=== PATIENT | female | born 1930 | race Caucasian/White ===

== ENCOUNTER 2018-06-29 17:41 | Observation (INO) | payer OTHER ==
--- NOTE | 2018-06-29 17:54 | PDOC ---
Rapid Medical Evaluation Chief Complaint: Shortness of Breath Time Seen by Provider: 06/29/18 17:49 Medical Evaluation: 06/29/18 17:50 CC: Pt complains of SOB HPI: Pt is an 88 YO female who complains of SOB x 2-3 hours. Pt also complains of hx of anxiety. Pt is a poor historian and I received limited information from EMS. Pt denies pedal edema, denies CP. I have performed a brief in- person evaluation of this patient. Pertinent Physical Findings: Skin: Clear Lungs: Clear Heart: RRR Neuro: Alert Extremities: No pedal edema Psych: Appropriate affect I have ordered: CP/Respiratory Protocol The patient will proceed to: Main ED for further evaluation. Discharge Disposition - Diagnosis Shortness of breath - Referrals - Patient Instructions - Post Discharge Activity
[2018-06-29 18:01] VITALS: BMI 23.8
[2018-06-29 19:12] LABS: BASO % 1.3 % (0-2.0); EOS % 1.1 % (0-4.5); HEMOGLOBIN 13.6 GM/dL (10.7-15.3); MCH 31.2 pg (25.7-33.7); MCHC 33.3 g/dl (32.0-36.0); MEAN CELL VOLUME 93.8 fl (80-96); MEAN PLT VOLUME 8.2 fl (7.5-11.1); MONO % 6.6 % (3.8-10.2); PLATELET COUNT 246 K/MM3 (134-434); RBC 4.37 M/mm3 (3.60-5.2); RDW 13.3 % (11.6-15.6); WHITE BLOOD COUNT 5.9 K/mm3 (4.0-10.0)
[2018-06-29 19:41] LABS: ALBUMIN 4.1 g/dl (3.4-5.0); ALK PHOS 82 U/L (45-117); ANION GAP 5 MMOL/L (8-16); BILIRUBIN,TOTAL 0.8 mg/dL (0.2-1); BLOOD UREA NITROGEN 21 mg/dL (7-18); CALCIUM 9.7 mg/dL (8.5-10.1); CHLORIDE 104 mmol/L (98-107); CO2 26 mmol/L (21-32); GLUCOSE,RANDOM 97 mg/dL (74-106); POTASSIUM 4.3 mmol/L (3.5-5.1); SGOT/AST 18 U/L (15-37); SGPT/ALT 10 U/L (13-61); SODIUM 135 mmol/L (136-145); TOT PROT 7.6 g/dl (6.4-8.2)
--- NOTE | 2018-06-29 19:42 | PDOC ---
History of Present Illness - General Chief Complaint: Shortness of Breath Stated Complaint: PSYCHIATRIC Time Seen by Provider: 06/29/18 17:49 - History of Present Illness Initial Comments: 06/29/18 19:40 88 yo F with h/o Parkinson's disease who p/w SOB. Patient reports acute onset of SOB, this evening at rest. Also endorses palpitations, unremitting, diffuse chest tightness, and dyspepsia " sensation that she needs to burp," this evening. Does not recall time of symptom onset. Does not identify alleviators, or triggers. Patient is poor historian. Patient denies N/V, F,C, cough, wheezing, leg swelling/pain, urinary complaints , abdominal pain, diarrhea, constipation, lightheadedness, weakness, sensory changes. PMHx: as noted above. Denies h/o ACS/SD, CABG, stent placement. Denies h/o PE/ DVT. Denies h/o chronic NSAID use. ROS: as noted SHx: Denies Etoh, tobacco, IVDA Allergies: NKDA Meds: Sinemet, Metoprolol, Valium Past History - Past Medical History Allergies/Adverse Reactions: Allergies Allergy/AdvReac Type Severity Reaction Status Date / Time No Known Allergies Allergy Verified 06/29/18 17:51 COPD: No CHF: No Dementia: No - Immunization History Immunization Up to Date: No - Suicide/Smoking/Psychosocial Hx Smoking History: Never smoked Review of Systems - Review of Systems Comments:: 06/29/18 19:40 GENERAL/CONSTITUTIONAL: No fever or chills. No weakness. HEAD, EYES, EARS, NOSE AND THROAT: No change in vision. No ear pain or discharge. No sore throat. CARDIOVASCULAR: + chest pain and shortness of breath RESPIRATORY: No cough, wheezing, or hemoptysis. GASTROINTESTINAL: No nausea, vomiting, diarrhea or constipation. GENITOURINARY: No dysuria, frequency, or change in urination. MUSCULOSKELETAL: No joint or muscle swelling or pain. No neck or back pain. SKIN: No rash NEUROLOGIC: No headache, vertigo, loss of consciousness, or change in strength/ sensation. ENDOCRINE: No increased thirst. No abnormal weight change HEMATOLOGIC/LYMPHATIC: No anemia, easy bleeding, or history of blood clots. ALLERGIC/IMMUNOLOGIC: No hives or skin allergy. *Physical Exam - Vital Signs Last Vital Signs Temp Pulse Resp BP Pulse Ox 97.8 F 99 H 17 168/80 9 L 06/29/18 17:51 06/29/18 19:05 06/29/18 17:51 06/29/18 17:51 06/29/18 17:51 - Physical Exam Comments: 06/29/18 19:41 GENERAL: Anxious appearing, tremulous, awake, alert, and fully oriented. HEAD: No signs of trauma, normocephalic, atraumatic EYES: PERRLA, EOMI, sclera anicteric, conjunctiva clear ENT: Hearing grossly normal, nares patent, oropharynx clear without exudates. Moist mucosa NECK: Normal ROM, supple, no lymphadenopathy, JVD, or masses LUNGS: No distress, speaks full sentences, clear to auscultation bilaterally HEART: Regular rate and rhythm, normal S1 and S2, no murmurs, rubs or gallops, peripheral pulses normal and equal bilaterally. EXTREMITIES : Normal inspection, Normal range of motion, no edema. No clubbing or cyanosis. SKIN: Warm, Dry, normal turgor, no rashes or lesions noted ED Treatment Course - LABORATORY CBC & Chemistry Diagram: 06/29/18 19:00 06/29/18 19:00 - ADDITIONAL ORDERS Additional order review: 06/29/18 19:00 RBC 4.37 MCV 93.8 MCHC 33.3 RDW 13.3 MPV 8.2 Neutrophils % 61.0 Lymphocytes % 30.0 Monocytes % 6.6 Eosinophils % 1.1 Basophils % 1.3 Medical Decision Making - Medical Decision Making 06/29/18 21:20 88 yo F with h/o HTN, anxiety, Alzheimers dementia, Parkinson's disease who p/w SOB, chest tightness, and palpitations x 1 day. VSS, AF, A&OX3. Physical exam unremarkable. ACS/SD r/o. R/o PNA. Will assess for hypovolemia, hypoglycemia, cardiac dysarrtyhmias, metabolic and toxic derangements, acid-base disturbances , infection. ED Course: CBC, CMP, Trop, UA EKG, CXR 06/29/18 21:23 EKG: NSR with absent JEWEL, STD. Normal interval duration and axis. 06/29/18 21:26 CBC, CMP: Unremarkable Trop: Neg Admit to tele/obs 06/29/18 22:14 Per [facility] (pt. residence), are unaware of patient medication and pmh. Admitted to tele/obs. Sign out Dr. Dillon. 06/29/18 22:20 *DC/Admit/Observation/Transfer Diagnosis at time of Disposition: Shortness of breath Chest pain Qualifiers: Chest pain type: unspecified Qualified Code(s): R07.9 - Chest pain, unspecified - Discharge Dispostion Disposition: HOME Condition at time of disposition: Stable Decision to Admit order: Yes - Referrals Referrals: ON STAFF,NOT [Primary Care Provider] - - Patient Instructions Additional Instructions: Please return to the emergency department with any new or worsening symptoms or concerns. Please follow up with your primary care physician within 72 hours. - Post Discharge Activity - Attestations Physician Attestion: 06/29/18 19:41 I attest to the information provided in this note.
--- NOTE | 2018-06-29 20:26 | PDOC ---
Attending Attestation - [facility] HPI: 06/29/18 22:33 The patient is a 88 year old female with a significant past medical history of Parkinson's disease, anxiety, depression, chronic abdominal pain and HTN who presents to the ED with complaints of shortness of breath since earlier today. Patient reports a acute onset of shortness of breath this evening while at rest. She also reports palpitations, diffuse chest tightness, and dyspepsia associated with present symptoms. Patient saw her psychiatrist recently and put her on a new anxiety medication. Patient cannot recall the name of the medication. Patients a year ago and her son 2 years ago, since then patient has been depressed and anxious. As per daughter in law, patient has a history of noncompliance with medication. Denies fever or chills. Denies nausea or vomiting. Denies any other symptoms. Documentation prepared by Padmini Valero, acting as medical professionals for Aparna Awad DO. - Physicial Exam PE: 06/29/18 22:33 Constitutional: + Anxious appearing, tremulous, shaking, panicked, tachypneic. Awake, alert, oriented. Head: Normocephalic. Atraumatic Eyes: PERRL. EOMI. Conjunctivae are not pale. ENT: Mucous membranes are moist and intact. Posterior pharynx without exudates or erythema. Uvula midline. Neck: Supple. Full ROM. No lymphadenopathy. Cardiovascular: Regular rate. Regular rhythm. S1, S2 regular. Distal pulses are 2+ and symmetric. Pulmonary/Chest: No evidence of respiratory distress. Clear to auscultation bilaterally No wheezing, rales or rhonchi. Abdominal: + Mild periumbilical pain. Soft and non-distended. No rebound, guarding or rigidity. No organomegaly. No palpable masses. Good bowel sounds. Back: No CVA tenderness. Musculoskeletal: No edema. No cyanosis. No clubbing. Full range of motion in all extremities. Nocalf tenderness. Radial/pedal pulses are intact and 2+ bilaterally Skin: Skin is warm and dry. No petechiae. No purpura. Neurological: Alert and oriented to person, place, and time. Cranial nerves II -XII are grossly intact. Normal speech. Strength is grossly symmetric. No sensory deficits. Psychiatric: Good eye contact. Normal interaction, affect and behavior. <Padmini Valero - Last Filed: 06/29/18 22:33> - Resident Resident Name: Carl Montoya - ED Attending Attestation I have performed the following: I have examined & evaluated the patient, The case was reviewed & discussed with the resident, I agree w/resident's findings & plan, Exceptions are as noted - Medical Decision Making 06/29/18 20:25 I, Dr. Aparna Awad, DO, attest that this document has been prepared under my direction and personally reviewed by me in its entirety. I further attest, that it accurately reflects all work, treatment, procedures and medical decision -making performed by me. 06/29/18 22:41 a/p: 88yo female with with cp/sob and abd pain -hx of htn -hx of parksinsons -pt with tachypnea -pt states she cannot breath -will send labs, ekg, cxr -lungs cta -pt appears anxious 06/29/18 22:46 case discussed with the patients [id number] who states hx of htn, parkinsons, anxiety/depression: saw psych yesterday who started her on a "med" but she was unsure what medication Alexandra states hx of similar episodes: has been on xanax and valium in the past hx of noncompliance with all meds pt admits to not taking her sinemet today pt still c/o cp will place in obs over night for acs eval and further eval of sob 06/29/18 22:48 resident discussed the case with SANDER who accepts pt to service <Aparna Awad - Last Filed: 06/29/18 22:48> Heart Score/ECG Review - ECG Intrepretation Comment:: 06/29/18 21:57 sinus at 60, nl axis, nl interval, no acute st/t wave findings <Aparna Awad - Last Filed: 06/29/18 22:48>
[2018-06-29] MEDS ORDERED: LORazepam 0.5 MG TABLET PO ONE (22:14)
[2018-06-29] MEDS ORDERED: ASPIRIN 81 MG CHEWABLE TABLETS PO ONE (22:15)
[2018-06-29] MEDS ORDERED: LORazepam 0.5 MG TABLET ONE (22:30)
[2018-06-29] MEDS ORDERED: ASPIRIN COATED 81 MG TABLET.EC ONE (22:31)
--- NOTE | 2018-06-29 22:34 | PN ---
Teaching Attending Note Name of Resident: Angi Louie ATTENDING PHYSICIAN STATEMENT I saw and evaluated the patient. I reviewed the resident's note and discussed the case with the resident. I agree with the resident's findings and plan as documented. SUBJECTIVE: Patient is an 88 year old woman with history of Parkinson's disease, HTN, anxiety and Alzheimer's dementia sent from [address] [place] [address] for SOB. Patient reports acute onset of SOB this evening at rest associated with palpitations, unremitting, diffuse chest tightness, and dyspepsia - " sensation that she needs to burp,". Does not recall time of symptom onset. Does not identify alleviators or triggers. Patient denies vomiting, cough, chills, urinary complaints, abdominal pain, diarrhea or lightheadedness. OBJECTIVE: Alert and anxious. In no acute distress off O2 Vital Signs Period Temp Pulse Resp BP Sys/Clemons Pulse Ox Last 24 Hr 97.8 F 69-99 17-18 127-168/80-91 9-100 HEENT: No Jaundice, eye redness or discharge, PERRLA, EOMI. Normocephalic, atraumatic. External ears are normal and hearing is grossly intact. No nasal discharge. Neck: Supple, nontender. No palpable adenopathy or thyromegaly. No JVD Chest: Good effort. Clear to auscultation and percussion. Heart: Regular. No S3, rub or murmur Abdomen: Not distended, soft, nontender and no HSM. No rebound or guarding. Normoactive bowel sounds. Ext: Peripheral pulses intact. No leg edema. Skin: Warm and dry. No petechiae, rash or ecchymosis. Neuro: Alert. Anxious and tremulous. Oriented to person. CN 2-12 grossly intact. Sensation grossly intact in all four extremities and DTR are symmetric. Abnormal Lab Results 06/29/18 19:00 Sodium 135 L Anion Gap 5 L BUN 21 H ALT 10 L ASSESSMENT AND PLAN: 1. Chest pain - Pain is atypical. No acute EKG changes and troponin is negative. Admit as Obs to telemetry to rule out ACS. Patient was likely anxious because she did not take her valium today and was therefore short of breath. Now comfortable off O2. Awaiting CXR. Restart home medications including antihypertensive drugs. 2. DVT prophylaxis - Lovenox 40 mg SQ q 24 hours. 3. Advance directives - Full code
--- NOTE | 2018-06-30 00:31 | HP ---
CHIEF COMPLAINT: sob PCP: Dr. Gallegos, HISTORY OF PRESENT ILLNESS: Pt is a poor historian. 88F w/ pmhx of Parkinson's, anxiety, HTN presented to the hospital with sob. Pt reports she was sitting down in her home at [facility] when she suddenly became short of breath. She states that she has had episodes of shortness of breath in the past, but none as severe as today. She also admits to OLGUIN, dizziness, palpitations, and abdominal pain. She denies fever/chills, nausea/vomiting, chest pain, cough. She also denies heart disease, lung disease , seizures, falling, slurred speech, focal weakness. She reports that she has lost 15 lbs over the past 9 months. Of note, pt reports that she is usually compliant with her medications, however she did not take her Valium today for unknown reason. ER course was notable for: (1) Na 135, BUN 21 (2) Ativan 0.5 mg, Aspirin 325 mg given (3) CXR ordered Recent Travel: Denies PAST MEDICAL HISTORY: Parkinson's Anxiety HTN PAST SURGICAL HISTORY: Denies Social History: Smoking: Denies Alcohol: Denies Drugs: Denies Family History: Denies Allergies No Known Allergies Allergy (Verified 06/29/18 17:51) HOME MEDICATIONS: REVIEW OF SYSTEMS CONSTITUTIONAL: generalized weakness, malaise, loss of appetite, weight change Absent: fever, chills, diaphoresis HEENT: Absent: rhinorrhea, nasal congestion, throat pain, throat swelling, difficulty swallowing, mouth swelling, ear pain, eye pain, visual changes CARDIOVASCULAR: Absent: chest pain, syncope, palpitations, irregular heart rate, lightheadedness , peripheral edema RESPIRATORY: shortness of breath Absent: cough, dyspnea with exertion, orthopnea, wheezing, stridor, hemoptysis GASTROINTESTINAL: abdominal pain, constipation Absent: abdominal distension, nausea, vomiting, diarrhea, , melena, hematochezia GENITOURINARY: Absent: dysuria, frequency, urgency, hesitancy, hematuria, flank pain, genital pain MUSCULOSKELETAL: Absent: myalgia, arthralgia, joint swelling, back pain, neck pain SKIN: Absent: rash, itching, pallor HEMATOLOGIC/IMMUNOLOGIC: Absent: easy bleeding, easy bruising, lymphadenopathy, frequent infections ENDOCRINE: Absent: unexplained weight gain, unexplained weight loss, heat intolerance, cold intolerance NEUROLOGIC: Absent: headache, focal weakness or paresthesias, dizziness, unsteady gait, seizure, mental status changes, bladder or bowel incontinence PSYCHIATRIC: anxiety Absent: depression, suicidal or homicidal ideation, hallucinations. PHYSICAL EXAMINATION Vital Signs - 24 hr 06/29/18 06/29/18 06/29/18 17:51 19:05 19:54 Temperature 97.8 F Pulse Rate 69 99 H Pulse Rate [ 71 Left Radial] Respiratory 17 18 Rate Blood Pressure 168/80 Blood Pressure 127/91 [Left Arm] O2 Sat by Pulse 9 L 100 Oximetry (%) 06/29/18 20:00 Temperature Pulse Rate Pulse Rate [ Left Radial] Respiratory 18 Rate Blood Pressure Blood Pressure [Left Arm] O2 Sat by Pulse 100 Oximetry (%) PHYSICAL EXAM: GENERAL: AAOx1 only to place. Anxious. Frail. HEENT: AT/NC. Face symmetrical. EOMI. ERIKA. Dry mucus membranes. NECK: Supple, no LAD/JVD. LUNGS: CTA B/L. No w/r/r noted. Symmetric chest rise. No accessory muscle use. HEART: RRR. Normal S1, S2. No murmurs noted. ABDOMEN: Soft, NT/ND. +BS in all 4 Q's. No masses or bruits noted. MUSCULOSKELETAL: No pedal edema. 5/5 muscle strength in b/l u/l extremities. NEUROLOGICAL: Normal speech. Facial muscles intact b/l. PSYCHIATRIC: Cooperative. Good eye contact. Appropriate mood and affect. SKIN: Warm, dry, normal turgor, normal capillary refill. Laboratory Results - last 24 hr 06/29/18 06/29/18 06/29/18 19:00 19:00 19:00 WBC 5.9 RBC 4.37 Hgb 13.6 Hct 41.0 MCV 93.8 MCH 31.2 MCHC 33.3 RDW 13.3 Plt Count 246 MPV 8.2 Absolute Neuts (auto) 3.6 Neutrophils % 61.0 Lymphocytes % 30.0 Monocytes % 6.6 Eosinophils % 1.1 Basophils % 1.3 Nucleated RBC % 0 Sodium 135 L Potassium 4.3 Chloride 104 Carbon Dioxide 26 Anion Gap 5 L BUN 21 H Creatinine 1.0 Creat Clearance w eGFR 52.33 Random Glucose 97 Calcium 9.7 Total Bilirubin 0.8 AST 18 ALT 10 L Alkaline Phosphatase 82 Creatine Kinase 72 Troponin I < 0.02 Total Protein 7.6 Albumin 4.1 ASSESSMENT/PLAN: 88F w/ pmhx of Parkinson's, anxiety, HTN presented to the ED with shortness of breath. #Panic attack r/o lung disease; Pt states she did not take her Valium today for an unknown reason. As a result, her symptoms could be attributed to a panic attack. Upon exam, pt was extremely anxious, but calmed down after talking to her. She becomes very anxious when she is alone. -resume home med Valium (needs med rec) -f/u CXR #HTN -Metoprolol Tartrate 25 mg PO given once -resume home med Metoprolol (needs med rec) #FEN -no IVf -recheck lytes in AM -regular diet dispo -admit to tele obs -needs med rec Visit type - Emergency Visit Emergency Visit: Yes ED Registration Date: 06/29/18 Care time: The patient presented to the Emergency Department on the above date and was hospitalized for further evaluation of their emergent condition. - New Patient This patient is new to me today: Yes Date on this admission: 07/01/18 - Critical Care Critical Care patient: No
[2018-06-30] MEDS ORDERED: METOPROLOL TARTRATE 25 MG TABLET (FP) PO ONE (04:39)
[2018-06-30] MEDS ORDERED: METOPROLOL TARTRATE 25 MG TABLET (FP) PO STA (04:40)
[2018-06-30] MEDS ORDERED: amLODIPine BESYLATE 5 MG TABLET (FP) ONE (09:18)
--- NOTE | 2018-06-30 09:18 | EKG ---
Test Reason : Blood Pressure : / mmHG Vent. Rate : 060 BPM Atrial Rate : 060 BPM P-R Int : 148 ms QRS Dur : 076 ms QT Int : 434 ms P-R-T Axes : 052 064 054 degrees QTc Int : 434 ms NORMAL SINUS RHYTHM NO PREVIOUS ECGS AVAILABLE Confirmed by MAVERICK KENNEDY MD ([id number]) on 06/30/2018 9:18:30 AM Referred By: Confirmed By:MAVERICK KENNEDY MD
[2018-06-30] MEDS ORDERED: amLODIPine BESYLATE 10 MG TABLET (FP) PO ONE (09:30)
[2018-06-30] MEDS ORDERED: ENOXAPARIN NA (PORCINE) 40 MG/0.4 ML DISP.SYRIN SQ SCH (10:00)
[2018-06-30] MEDS ORDERED: ESCITALOPRAM OXALATE 10 MG TABLET (FP) PO SCH (11:45)
--- NOTE | 2018-06-30 11:52 | PN ---
Physical Exam: SUBJECTIVE: Patient seen and examined at bedside. She appears anxious and expresses concern regarding receiving her home medications as she was not given some of them yesterday. However, she is unable to name which medications she takes at home. Admits multiple OBJECTIVE: Vital Signs Period Temp Pulse Resp BP Sys/Clemons Pulse Ox Last 24 Hr 97.6 F-98.0 F 61-99 17-18 127-198/80-107 9-100 GENERAL: The patient is awake, alert, and fully oriented, in no acute distress. HEAD: Normal with no signs of trauma. EYES: PERRL, extraocular movements intact, sclera anicteric, conjunctiva clear. No ptosis. ENT: Ears normal, nares patent, oropharynx clear without exudates, moist mucous membranes. NECK: Trachea midline, full range of motion, supple. LUNGS: Breath sounds equal, clear to auscultation bilaterally, no wheezes, no crackles, no accessory muscle use. HEART: Regular rate and rhythm, S1, S2 without murmur, rub or gallop. ABDOMEN: Soft, nontender, nondistended, normoactive bowel sounds, no guarding, no rebound, no hepatosplenomegaly, no masses. EXTREMITIES: 2+ pulses, warm, well-perfused, no edema. NEUROLOGICAL: Cranial nerves II through XII grossly intact. Normal speech, gait not observed. PSYCH: Normal mood, normal affect. SKIN: Warm, dry, normal turgor, no rashes or lesions noted Laboratory Results - last 24 hr 06/29/18 06/29/18 06/29/18 19:00 19:00 19:00 WBC 5.9 RBC 4.37 Hgb 13.6 Hct 41.0 MCV 93.8 MCH 31.2 MCHC 33.3 RDW 13.3 Plt Count 246 MPV 8.2 Absolute Neuts (auto) 3.6 Neutrophils % 61.0 Lymphocytes % 30.0 Monocytes % 6.6 Eosinophils % 1.1 Basophils % 1.3 Nucleated RBC % 0 Sodium 135 L Potassium 4.3 Chloride 104 Carbon Dioxide 26 Anion Gap 5 L BUN 21 H Creatinine 1.0 Creat Clearance w eGFR 52.33 Random Glucose 97 Calcium 9.7 Total Bilirubin 0.8 AST 18 ALT 10 L Alkaline Phosphatase 82 Creatine Kinase 72 Troponin I < 0.02 Total Protein 7.6 Albumin 4.1 06/30/18 09:53 WBC RBC Hgb Hct MCV MCH MCHC RDW Plt Count MPV Absolute Neuts (auto) Neutrophils % Lymphocytes % Monocytes % Eosinophils % Basophils % Nucleated RBC % Sodium Potassium Chloride Carbon Dioxide Anion Gap BUN Creatinine Creat Clearance w eGFR Random Glucose Calcium Total Bilirubin AST ALT Alkaline Phosphatase Creatine Kinase Troponin I < 0.02 Total Protein Albumin Active Medications Generic Name Dose Route Start Last Admin Trade Name Freq PRN Reason Stop Dose Admin Carbidopa/Levodopa 1 each 06/30/18 14:00 Sinemet 25/100 - PO QID [facility]NEY Enoxaparin Sodium 40 mg 06/30/18 10:00 06/30/18 10:25 Lovenox - SQ 40 mg DAILY [facility] Administration Gabapentin 100 mg 06/30/18 12:00 Neurontin - PO DAILY [facility] Non-Formulary Medication 5 mg 06/30/18 11:45 Escitalopram Oxalate [Lexapro -] PO BID [facility] Non-Formulary Medication 100 mg 06/30/18 12:00 Losartan Potassium [Losartan Potassium] PO DAILY [facility] ASSESSMENT/PLAN:
[2018-06-30] MEDS ORDERED: ESCITALOPRAM OXALATE 10 MG TABLET (FP) ONE (11:54)
[2018-06-30] MEDS ORDERED: GABAPENTIN 100 MG CAPSULE (FP) PO SCH (12:00)
[2018-06-30] MEDS ORDERED: LOSARTAN POTASSIUM 50 MG TABLET (FP) PO SCH (12:00)
[2018-06-30] MEDS ORDERED: diazePAM 2 MG TABLET PO SCH (13:15)
[2018-06-30] MEDS ORDERED: CARBIDOPA/LEVODOPA 25/100 TABLET (FP) PO SCH (14:00)
--- NOTE | 2018-06-30 14:33 | PN ---
Teaching Attending Note Name of Resident: Art [place] ATTENDING PHYSICIAN STATEMENT I saw and evaluated the patient. I reviewed the resident's note and discussed the case with the resident. I agree with the resident's findings and plan as documented. SUBJECTIVE: seen earlier today No fever or chills. No cp , feels very anxious and wanted her medications she reports her cp episode at home as a feeling of fear of , sweating , and severe anxiety OBJECTIVE: Very anxious. CV: RRR Lungs: CTAB Abd: sfot, NT, ND , NL BS Ext : course tremor in R hand and R foot . no edema ASSESSMENT AND PLAN: 88 y/o lady with h/o anxiety ,HTN, Parkinson's and other medical problems who presented with Chest pain and anxiety 1- Atypical CP , in setting of panic attack. EKG with NSR and no ischemic changes. trop NL . no further w/u 2- Panic attack : cont her Valium and lexapro . f/u with her psychiatrist after dc 3- HTN urgency: given norvasc in am due to not being able to confirm her meds. resume her home meds at dc. BP improved. anxiety is contributing dispo: dc back to assisted living. ambulating well
[2018-06-30] MEDS ORDERED: diazePAM 2 MG TABLET ONE (14:45)
[2018-06-30 16:06] VITALS: BP 98/53; PULSE 65; TEMP 98
--- NOTE | 2018-06-30 18:34 | DS ---
Physical Exam: SUBJECTIVE: Patient seen and examined at bedside. Her anxiety is significantly improved and she denies acute complaints. OBJECTIVE: Vital Signs Period Temp Pulse Resp BP Sys/Clemons Pulse Ox Last 24 Hr 97.6 F-98.0 F 61-99 16-18 98-198/53-107 97-100 PHYSICAL EXAM GENERAL: The patient is awake, alert, oriented, in no distress. HEAD: Normal with no signs of trauma, atraumatic. EYES: PERRL, extraocular movements intact, sclera anicteric, conjunctiva clear. ENT: Oropharynx clear without exudates, moist mucous membranes. NECK: Supple without lymphadenopathy LUNGS: Good inspiratory effort, and air entry b/l. Breath sounds equal, clear to auscultation bilaterally, no wheezes, no crackles. No accessory muscle use. HEART: Regular rate and rhythm, S1, S2 without murmur, rub or gallop. ABDOMEN: Soft, nontender, nondistended, normoactive bowel sounds, no guarding, no rebound, no hepatosplenomegaly. EXTREMITIES: 2+ radial and dorsalis pedis pulses. Warm, well-perfused, no b/l lower extremity edema. NEUROLOGICAL: Cranial nerves II through XII grossly intact. Normal speech. PSYCH: Anxiety significantly improved from initial presentation. SKIN: Warm, dry. LABS Laboratory Results - last 24 hr 06/29/18 06/29/18 06/29/18 19:00 19:00 19:00 WBC 5.9 RBC 4.37 Hgb 13.6 Hct 41.0 MCV 93.8 MCH 31.2 MCHC 33.3 RDW 13.3 Plt Count 246 MPV 8.2 Absolute Neuts (auto) 3.6 Neutrophils % 61.0 Lymphocytes % 30.0 Monocytes % 6.6 Eosinophils % 1.1 Basophils % 1.3 Nucleated RBC % 0 Sodium 135 L Potassium 4.3 Chloride 104 Carbon Dioxide 26 Anion Gap 5 L BUN 21 H Creatinine 1.0 Creat Clearance w eGFR 52.33 Random Glucose 97 Calcium 9.7 Total Bilirubin 0.8 AST 18 ALT 10 L Alkaline Phosphatase 82 Creatine Kinase 72 Troponin I < 0.02 Total Protein 7.6 Albumin 4.1 06/30/18 09:53 WBC RBC Hgb Hct MCV MCH MCHC RDW Plt Count MPV Absolute Neuts (auto) Neutrophils % Lymphocytes % Monocytes % Eosinophils % Basophils % Nucleated RBC % Sodium Potassium Chloride Carbon Dioxide Anion Gap BUN Creatinine Creat Clearance w eGFR Random Glucose Calcium Total Bilirubin AST ALT Alkaline Phosphatase Creatine Kinase Troponin I < 0.02 Total Protein Albumin HOSPITAL COURSE: Date of Admission:06/29/18 Date of Discharge: 06/30/18 Patient is an 88 year old female with history of parkinsons disease, anxiety, hypertension, presents from [facility] with complaint shortness of breath. Presented with anxiety and was hypertensive to 198/97. She endorsed missing her last dose of Valium as it was not given to her. EKG showed normal sinus rhythm without ischemic changes, and troponins were negative X2. Her anxiety, and BP medications were reinstated and her symptoms of anxiety significantly improved. BP trended down with medication. She was discharged back to [facility] to continue all of her home medications. Instructed to follow up with primary care provider within one week of discharge. Minutes to complete discharge: 45 Discharge Summary Reason For Visit: SHORTNESS OF BREATH/CHEST PAIN Condition: Stable - Instructions Diet, Activity, Other Instructions: You are admitted with chest pain, symptoms of anxiety. Your EKG and blood tests showed no signs of heart attack. You were given medications to manage the anxiety, and are being discharged back to [facility]. Please continue taking all of your medications as directed it is important to take your blood pressure medications It is important that you follow up with your primary care provider Dr. Gallegos ) within the next two-three days, as soon as possible Follow up with your psychiatrist within the next two-three days, as soon as possible. Please return to the emergency department with any new or worsening symptoms or concerns. Please follow up with your primary care physician within 72 hours. Referrals: bowen Gallegos [Other] - 1 Week Disposition: HOME - Home Medications Comprehensive Discharge Medication List: Ambulatory Orders Carbidopa/Levodopa [Carbidopa-Levodopa 25-100 Tab] 1 each PO QID 06/30/18 Diazepam [Valium] 2 mg PO DAILY 06/30/18 Escitalopram Oxalate [Lexapro -] 5 mg PO BID 06/30/18 Gabapentin [Neurontin] 100 mg PO DAILY 06/30/18 Losartan Potassium 100 mg PO DAILY 06/30/18 Metoprolol Succinate [Toprol Xl] 50 mg PO BID 06/30/18 This patient is new to me today: Yes Date on this admission: 06/30/18 Emergency Visit: Yes ED Registration Date: 06/29/18 Care time: The patient presented to the Emergency Department on the above date and was hospitalized for further evaluation of their emergent condition. Critical Care patient: No - Discharge Referral Referred to [facility] No
== END 2018-06-30 15:30 ==
LOC: JER 17:41 → JERBED 22:15
PROVIDERS: ADMIT Internal Medicine; ATTEND Internal Medicine
PROC: 3E013GC Introduction of Other Therapeutic Substance into Subcutaneous Tissue, Percutaneous Approach (ICD-10-PCS; principal; 2018-06-29)
DX: R07.89 Other chest pain (principal); F41.0 Panic disorder [episodic paroxysmal anxiety]; R06.02 Shortness of breath; I16.0 Hypertensive urgency; I10 Essential (primary) hypertension; G30.9 Alzheimer's disease, unspecified; G20 Parkinson's disease; F02.80 Dementia in other diseases classified elsewhere, unspecified severity, without behavioral disturbance, psychotic disturbance, mood disturbance, and anxiety
CPT/HCPCS: 36415; 71046-TC-FY; 80053; 82550; 84484; 85025; 93005; 93010; 96372; 99285-25; G0378